=== PATIENT | male | born 1955 | race African-American/Black ===

== ENCOUNTER 2024-03-19 18:45 | Inpatient (IN) | payer MEDICARE, MEDICAID ==
[~2024-03-19] VITALS: Ht 170.2 cm; Wt 82.6 kg
[2024-03-19] MEDS ORDERED: MORPHINE SULFATE 4 MG/ML INJ (FOR IV/IM USE) IV STA (18:56)
[2024-03-19] MEDS ORDERED: ONDANSETRON HCL 4MG/2ML INJ IV STA (18:56)
[2024-03-19 20:03] LABS: CLARITY URINE CLOUDY (CLEAR); COLOR URINE RED (YELLOW); GLUCOSE URINE 3+ (NEGATIVE); KETONES URINE NEGATIVE (NEGATIVE); LEUKOCYTE ESTERASE URINE 2+ (NEGATIVE); NITRITE URINE NEGATIVE (NEGATIVE); OCCULT BLOOD URINE 3+ (NEGATIVE); PH URINE 7.5 (4.5-8.0); PROTEIN URINE 3+ (NEGATIVE); SPECIFIC GRAVITY URINE 1.019 (1.005-1.030); UROBILINOGEN URINE 0.2 E.U./dL (0.2-1.0)
[2024-03-19 20:35] LABS: BACTERIA URINE 1+; RBC URINE TNTC /hpf (0-2); SQUAMOUS EPITHELIAL CELL URINE FEW /lpf (RARE/1+)
[2024-03-19 20:41] LABS: HEMATOCRIT. 35.9 % (42.0-52.0); HEMOGLOBIN. 11.6 g/dL (14.0-18.0); MEAN CORPUSCULAR HEMOGLOBIN 32.1 pg (28.0-32.0); MEAN CORPUSCULAR HGB CONC 32.3 g/dL (31.0-37.0); MEAN CORPUSCULAR VOLUME 99.5 fL (80.0-94.0); MEAN PLATELET VOLUME 9.1 fl (7.4-10.4); PLATELET 146 x1000/uL (130-400); RED BLOOD CELL COUNT 3.61 mill/uL (4.7-6.1); RED CELL DISTRIBUTION WIDTH 18.5 % (11.6-14.6); WHITE BLOOD COUNT 39.4 x1000/uL (4.5-11.0)
[2024-03-19 20:47] LABS: DIFFERENTIAL COMMENT 1
[2024-03-19 20:49] LABS: CALCIUM 8.1 mg/dL (8.7-10.4); CARBON DIOXIDE 24 mEq/L (21-32); CHLORIDE 107 mEq/L (98-107); POTASSIUM 4.6 mEq/L (3.5-5.1); SODIUM 136 mEq/L (136-145)
[2024-03-19 20:53] LABS: CREATININE 0.8 mg/dL (0.6-1.3); GLUCOSE 213 mg/dL (70-105); UREA NITROGEN BLOOD 7 mg/dL (9-23)
[2024-03-19 20:55] LABS: ALANINE AMINOTRANSFERASE < 7 IU/L (10-49); ALBUMIN 3.9 g/dL (3.2-4.8); ASPARTATE AMINOTRANSFERASE 22 IU/L (<34); BILIRUBIN DIRECT 0.1 mg/dL (<=3.0); INR 1.1; PROTHROMBIN TIME 12.4 sec (9.6-11.0)
[2024-03-19 20:56] LABS: BILIRUBIN TOTAL 0.4 mg/dL (0.1-1.0); PROTEIN TOTAL 6.3 g/dL (6.0-8.3); TROPONIN I HIGH SENSITIVITY < 4 ng/L (3.0-53)
[2024-03-19 21:31] LABS: ANISOCYTOSIS 1+; PLATELET ESTIMATE NORMAL
[2024-03-19] MEDS: MORPHINE SULFATE 4 MG/ML INJ (FOR IV/IM USE) IV NR (23:06)
[2024-03-19] MEDS: ONDANSETRON HCL 4MG/2ML INJ IV NR (23:07)
[2024-03-19] MEDS: CEFTRIAXONE 2GM/50ML 50 ML IV ONE (23:08)
[2024-03-19] MEDS: SODIUM CHLORIDE 0.9% 1000ML BAG (SEPSIS BOLUS) IV ONE (23:09)
[2024-03-20] VITALS (9 sets, daily range): BP systolic 100–132; BP diastolic 50–86; PULSE 68–94; RESP 16–20; TEMP 97–99.7; O2SAT 98
[2024-03-20] MEDS ORDERED: DEXTROSE 50% WATER 50ML SYRINGE IV PRN (02:45)
[2024-03-20] MEDS: HYDROCODONE/ACETAMINOPHEN 5/325MG TABLET PO PRN (05:46)
[2024-03-20 07:24] LABS: CALCIUM 8.5 mg/dL (8.7-10.4); CARBON DIOXIDE 24 mEq/L (21-32); CHLORIDE 103 mEq/L (98-107); POTASSIUM 4.6 mEq/L (3.5-5.1); SODIUM 134 mEq/L (136-145)
[2024-03-20 07:30] LABS: CREATININE 0.9 mg/dL (0.6-1.3); GLUCOSE 169 mg/dL (70-105); TRIGLYCERIDE 66 mg/dL (0-150); UREA NITROGEN BLOOD 10 mg/dL (9-23)
[2024-03-20 07:31] LABS: LDL CHOLESTEROL 82 mg/dL (5-100)
[2024-03-20 07:32] LABS: CHOLESTEROL 129 mg/dL (<200); HDL CHOLESTEROL 34 mg/dL (>55)
[2024-03-20] MEDS: BLOOD SUGAR DIAGNOSTIC STRIP TEST SCH (07:47)
[2024-03-20] MEDS: INSULIN LISPRO 100 UNITS/ML SUBCUT SCH (08:06)
[2024-03-20 08:10] LABS: HEMATOCRIT. 35.3 % (42.0-52.0); HEMOGLOBIN. 11.4 g/dL (14.0-18.0); MEAN CORPUSCULAR HEMOGLOBIN 32.3 pg (28.0-32.0); MEAN CORPUSCULAR HGB CONC 32.3 g/dL (31.0-37.0); MEAN CORPUSCULAR VOLUME 99.9 fL (80.0-94.0); MEAN PLATELET VOLUME 9.3 fl (7.4-10.4); PLATELET 135 x1000/uL (130-400); RED BLOOD CELL COUNT 3.53 mill/uL (4.7-6.1)
[2024-03-20 08:37] LABS: DIFFERENTIAL COMMENT 1
[2024-03-20 08:39] LABS: WHITE BLOOD COUNT 41.4 x1000/uL (4.5-11.0)
[2024-03-20] MEDS: ASPIRIN 325MG TABLET PO SCH (09:59)
[2024-03-20] MEDS: ASPIRIN 81MG TABLET ONE (10:10)
[2024-03-20] MEDS: IPRATROPIUM/ALBUTEROL 0.5-3(2.5)MG/3ML NEB HHN SCH (11:49)
[2024-03-20] MEDS ORDERED: TIMO15DR11 EACHEYE (12:55)
[2024-03-20] MEDS ORDERED: NALOXONE HCL 0.4MG/ML VIAL IV PRN (13:15)
[2024-03-20] MEDS: TIMOLOL MALEATE 0.25% OPHTH DROPS 5ML EACHEYE SCH (15:30)
[2024-03-20 17:38] LABS: ANISOCYTOSIS 1+; PLATELET ESTIMATE NORMAL
[2024-03-20] MEDS: CEFTRIAXONE 1GM/50ML 50 ML IV SCH (19:00)
[2024-03-20] MEDS: ATORVASTATIN CALCIUM 40MG TABLET PO SCH (20:29)
[2024-03-21] VITALS (9 sets, daily range): BP systolic 100–127; BP diastolic 49–75; PULSE 71–92; RESP 16–24; TEMP 97.3–98; O2SAT 96
[2024-03-21] MEDS: TAMSULOSIN HCL 0.4MG SR CAPSULE PO SCH (02:12)
[2024-03-21] MEDS: ASPIRIN 81MG TABLET PO SCH (08:33)
[2024-03-21] MEDS: NITROFURANTOIN 100MG M/M CAPSULE PO SCH (18:14)
[2024-03-22] VITALS: BP 105/50; PULSE 81; RESP 18; TEMP 98.2
[2024-03-22 01:23] VITALS: PULSE 79; RESP 20
[2024-03-22 04:37] VITALS: PULSE 77; RESP 19
[2024-03-22 06:34] VITALS: BP 105/50; PULSE 81; TEMP 98.2; O2SAT 97
[2024-03-22 08:00] VITALS: BP 110/83; PULSE 71; RESP 18; TEMP 98
[2024-03-22 09:05] VITALS: PULSE 75; RESP 20
== END 2024-03-22 10:45 | DRG 463 ==
LOC: ER 18:45 → 6WST 21:49
PROVIDERS: ADMIT Internal Medicine; ATTEND Internal Medicine
DX: N39.0 Urinary tract infection, site not specified (principal); C95.90 Leukemia, unspecified not having achieved remission; D64.9 Anemia, unspecified; E11.9 Type 2 diabetes mellitus without complications; B96.89 Other specified bacterial agents as the cause of diseases classified elsewhere; I10 Essential (primary) hypertension; T37.8X5A Adverse effect of other specified systemic anti-infectives and antiparasitics, initial encounter; Y92.89 Other specified places as the place of occurrence of the external cause; Z86.73 Personal history of transient ischemic attack (TIA), and cerebral infarction without residual deficits; Z79.899 Other long term (current) drug therapy
CPT/HCPCS: 36415; 71045; 74176; 80048; 80061; 80076; 81003; 82962; 83036; 83605; 83880; 84145; 84484; 85025; 87077; 87186; 93005; 94640; 99291; A6261; J0696; J1815; J2270; J2405; J7030; A4315